=== PATIENT | female | born 1995 | race Caucasian/White ===

== ENCOUNTER 2021-07-20 07:42 | Emergency (ER) | payer OTHER ==
[~2021-07-20] VITALS: Ht 149.9 cm; Wt 65.8 kg
[~2021-07-20 07:42] MED LIST: AMOXICILLIN875 MG PO; ATIVAN1 MG PO; CELEXA40 MG PO; CLONAZEPAM PO; DEPRESSION; FLEXERIL PO; IBUPROFEN 600600 M1 PO; METHADONE HCL 110 M1 PO; METHADONE HCL 110 MG PO; NAPROSYN500 MG PO; NORCO 5-325 TA1 EACH PO; NORFLEX100 MG PO; PAXIL; PEPCID40 MG PO; PREDNISONE 10 M10 MG PO; PROTONIX40 MG PO; SEROQUEL; SEROQUEL 100 M100 MG; TOBREX5 ML OPHTHALMIC; VALIUM5 MG PO; ZOFRAN ODT4 MG PO
[2021-07-20 08:00] VITALS: BP 121/66
== END 2021-07-20 08:52 | disposition home or self-care (01) ==
LOC: ER 07:42
PROVIDERS: Student in an Organized Health Care Education/Training Program
DX: J06.9 Acute upper respiratory infection, unspecified (principal); Z20.822 Contact with and (suspected) exposure to COVID-19; Z79.899 Other long term (current) drug therapy; Z88.8 Allergy status to other drugs, medicaments and biological substances